=== PATIENT | female | born 1975 | race Caucasian/White ===

== ENCOUNTER 2018-10-27 12:50 | Inpatient (IN) | payer BC ==
[2018-10-27 14:33] LABS: ABS Basophils 0.1 10^3/ul (0-0.2); ABS Eosinophils 0.2 10^3/ul (0-0.6); ABS Lymphocytes 3.1 10^3/ul (1.0-4.8); ABS Monocytes 1.3 10^3/ul (0-0.8); ABS Neutrophils 10.3 10^3/ul (1.5-7.7); Eosinophil % 1.1 %; Hematocrit 40 % (35-47); Hemoglobin 13.4 g/dL (12.0-16.0); Mean Corpuscular HGB Conc 34 g/dL (31-36); Mean Corpuscular Hemoglobin 25 pg (27-31); Mean Corpuscular Volume 75 fL (80-97); Mean Platelet Volume 7.1 fL (7.4-10.4); Nucleated Red Blood Cells % 0.1; Platelet Count 456 10^3/uL (150-450); Red Blood Count 5.33 10^6 /uL (3.70-4.87); Red Cell Distribution Width 15 % (10-15); White Blood Count 14.9 10^3/uL (3.5-10.8)
[2018-10-27 14:56] LABS: HCG Pregnancy < 0.60 mIU/mL
[2018-10-27 15:11] LABS: ALT 29 U/L (7-52); AST 22 U/L (13-39); Albumin 4.5 g/dL (3.2-5.2); Albumin/Globulin Ratio 1.5 (1-3); Alkaline Phosphatase 86 U/L (34-104); Anion Gap 8 mmol/L (2-11); BUN/Creatinine Ratio 10.4 (8-20); Blood Urea Nitrogen 7 mg/dL (6-24); C Reactive Protein 18.88 mg/L (<8.01); CO2 Carbon Dioxide 25 mmol/L (22-32); Calcium 9.1 mg/dL (8.6-10.3); Chloride 105 mmol/L (101-111); EGFR Non-African American 97.5 (>60); Glucose 103 mg/dL (70-100); Potassium 3.6 mmol/L (3.5-5.0); Sodium 138 mmol/L (135-145); Total Protein 7.5 g/dL (6.4-8.9)
[2018-10-27] MEDS ORDERED: NS 0.9% 1000 ML** 1,000 ML IV ONE (17:22)
[2018-10-27] MEDS ORDERED: Ondansetron INJ* 2 MG/ML VIAL IV ONE (17:22)
--- NOTE | 2018-10-27 17:22 | ED ---
Abdominal Pain/Female - HPI Summary HPI Summary: Patient patient with history of Crohn's and recurrent SBO due to stricture complains of upper abdominal pain starting last night with associated nausea and vomiting through the night. Patient states the symptoms are consistent with prior Crohn's flareups and SBO events. Eyes fever, cough, sore throat, CP , SOB, diarrhea, change in urine, vaginal symptoms. Patient currently taking Remicade every other month. Patient took Percocet 5 mg prior to arrival. Medical history is Crohn's. Abdominal surgical history 2. - History of Current Complaint Chief Complaint: EDAbdPain Stated Complaint: HAS CROHNS/POSS BLOCKAGE PER PT Time Seen by Provider: 10/27/18 16:43 Hx Obtained From: Patient Onset/Duration: Gradual Onset, Lasting Hours Timing: Constant Severity Initially: Moderate Severity Currently: Mild Pain Intensity: 2 Pain Scale Used: 0-10 Numeric Location: Discrete At: RUQ, Discrete At: LUQ, Epigastric Radiates: No Character: Cramping Aggravating Factor(s): Food Alleviating Factor(s): Nothing Associated Signs and Symptoms: Positive: Decreased Appetite, Nausea, Vomiting Allergies/Adverse Reactions: Allergies Allergy/AdvReac Type Severity Reaction Status Date / Time Sulfa (Sulfonamide Allergy Nausea Verified 09/21/18 17:34 Antibiotics) Home Medications: Home Medications Cholecalciferol TAB* [Vitamin D TAB*] 4,000 units PO DAILY 10/27/18 [History Confirmed 10/27/18] Multivitamin/Iron/Folic Acid [Centrum Women Tablet] 1 tab PO DAILY 10/27/18 [ History Confirmed 10/27/18] Omeprazole CAP (NF) [Prilosec CAP* 20 MG] 20 mg PO DAILY 10/27/18 [History Confirmed 10/27/18] PMH/Surg Hx/FS Hx/Imm Hx Endocrine/Hematology History: Denies: Hx Diabetes Cardiovascular History: Denies: Hx Hypertension GI History: Reports: Hx Crohn's Disease - controlled by Markel, Other GI Disorders - SBO History: Denies: Hx Renal Disease Sensory History: Denies: Hx Eye Prosthesis Opthamlomology History: Denies: Hx Legally Blind EENT History: Denies: Hx Deafness Neurological History: Denies: Hx Dementia Infectious Disease History: No Infectious Disease History: Denies: Traveled Outside the [place] in Last 30 Days - Family History Known Family History: Positive: Diabetes - Father - DM, Other - Mother - Crohn' s dz - Social History Alcohol Use: Rare Substance Use Type: Reports: None Smoking Status (MU): Former Smoker Type: Cigarettes Length of Time of Smoking/Using Tobacco: 5 yrs Have You Smoked in the Last Year: No Review of Systems Constitutional: Negative Eyes: Negative ENT: Negative Cardiovascular: Negative Respiratory: Negative Positive: Abdominal Pain, Vomiting, Nausea Genitourinary: Negative Musculoskeletal: Negative Skin: Negative Neurological: Negative Psychological: Normal All Other Systems Reviewed And Are Negative: Yes Physical Exam - Summary Physical Exam Summary: Patient tender to palpation in epigastric, right upper quadrant and left upper quadrant. Abdominal exam otherwise unremarkable. Triage Information Reviewed: Yes Vital Signs On Initial Exam: Initial Vitals Temp Pulse Resp BP Pulse Ox 98.0 F 107 18 134/107 99 10/27/18 13:10 10/27/18 13:10 10/27/18 13:10 10/27/18 13:10 10/27/18 13:10 Vital Signs Reviewed: Yes Appearance: Positive: Well-Appearing Skin: Positive: Warm Head/Face: Positive: Normal Head/Face Inspection Eyes: Positive: Normal Neck: Positive: Supple Respiratory/Lung Sounds: Positive: Clear to Auscultation Cardiovascular: Positive: Normal Abdomen Description: Positive: Other: Musculoskeletal: Positive: Normal Neurological: Positive: Normal Psychiatric: Positive: Normal AVPU Assessment: Alert - [place] Coma Scale Best Eye Response: 4 - Spontaneous Best Motor Response: 6 - Obeys Commands Best Verbal Response: 5 - Oriented Coma Scale Total: 15 Diagnostics - Vital Signs Vital Signs Temp Pulse Resp BP Pulse Ox 10/27/18 14:43 97.9 F 107 18 138/92 98 10/27/18 13:10 98.0 F 107 18 134/107 99 - Laboratory Lab Results: Lab Results 10/27/18 10/27/18 10/27/18 Range/Units 14:25 14:25 14:25 WBC 14.9 H (3.5-10.8) 10^3/uL RBC 5.33 H (3.70-4.87) 10^6 /uL Hgb 13.4 (12.0-16.0) g/dL Hct 40 (35-47) % MCV 75 L (80-97) fL MCH 25 L (27-31) pg MCHC 34 (31-36) g/dL RDW 15 (10-15) % Plt Count 456 H (150-450) 10^3/uL MPV 7.1 L (7.4-10.4) fL Neut % (Auto) 69.0 % Lymph % (Auto) 21.0 % [place] % (Auto) 8.4 % Eos % (Auto) 1.1 % Baso % (Auto) 0.5 % Absolute Neuts (auto) 10.3 H (1.5-7.7) 10^3/ul Absolute Lymphs (auto) 3.1 (1.0-4.8) 10^3/ul Absolute Monos (auto) 1.3 H (0-0.8) 10^3/ul Absolute Eos (auto) 0.2 (0-0.6) 10^3/ul Absolute Basos (auto) 0.1 (0-0.2) 10^3/ul Absolute Nucleated RBC 0.0 10^3/ul Nucleated RBC % 0.1 Sodium 138 (135-145) mmol/L Potassium 3.6 (3.5-5.0) mmol/L Chloride 105 (101-111) mmol/L Carbon Dioxide 25 (22-32) mmol/L Anion Gap 8 (2-11) mmol/L BUN 7 (6-24) mg/dL Creatinine 0.67 (0.51-0.95) mg/dL Est GFR ( Amer) 118.0 (>60) Est GFR (Non-Af Amer) 97.5 (>60) BUN/Creatinine Ratio 10.4 (8-20) Glucose 103 H (70-100) mg/dL Lactic Acid 1.0 (0.5-2.0) mmol/L Calcium 9.1 (8.6-10.3) mg/dL Total Bilirubin 0.50 (0.2-1.0) mg/dL AST 22 (13-39) U/L ALT 29 (7-52) U/L Alkaline Phosphatase 86 (34-104) U/L C-Reactive Protein 18.88 H (<8.01) mg/L Total Protein 7.5 (6.4-8.9) g/dL Albumin 4.5 (3.2-5.2) g/dL Globulin 3.0 (2-4) g/dL Albumin/Globulin Ratio 1.5 (1-3) Lipase 21 (11.0-82.0) U/L Beta HCG, Quant < 0.60 mIU/mL Result Diagrams: 10/28/18 05:20 10/28/18 05:20 Lab Statement: Any lab studies that have been ordered have been reviewed, and results considered in the medical decision making process. 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 Patient states the symptoms are consistent with prior Crohn's flareups and SBO events. Eyes fever, cough, sore throat, CP, SOB, diarrhea, change in urine, vaginal symptoms. Patient currently taking Remicade every other month. Patient took Percocet 5 mg prior to arrival. Medical history is Crohn's. Abdominal surgical history 2. Patient mildly tachycardic, vital signs otherwise within normal limits. CBC 14.9. CRP 18.8. CT abdomen and pelvis positive diffuse wall thickening of the distal ileum compatible with the patient's known Crohn's disease. There is mild proximal small bowel obstruction. There is mild free fluid in the abdomen. Ultrasound of the gallbladder positive for multiple small gallstones without focal tenderness or wall thickening. CBD borderline dilated. Moderate fatty liver. Patient admitted to the hospitalist - Diagnoses Provider Diagnoses: Crohns disease, Small bowel obstruction Discharge ED - Sign-Out/Discharge Documenting (check all that apply): Patient Departure - Discharge Plan Condition: Stable Disposition: ADMITTED TO [facility] - Billing Disposition and Condition Condition: STABLE Disposition: Admitted to [facility] - Attestation Statements Provider Attestation: I was available for consult. This patient was seen by the DARY. The patient was not presented to, seen by, or examined by me. Fili Wynn MD
[2018-10-27] MEDS ORDERED: Iohexol 300* (CONTRAST) 10 ML SDV IV ONE (18:04)
[2018-10-27 19:20] LABS: Urine Appearance Clear; Urine Bilirubin Negative (Negative); Urine Blood Negative (Negative); Urine Color Yellow; Urine Glucose Negative (Negative); Urine Ketones Trace (Negative); Urine Nitrite Negative (Negative); Urine Protein Negative (Negative); Urine Specific Gravity 1.018 (1.010-1.030); Urine Urobilinogen Negative (Negative)
[2018-10-27] MEDS ORDERED: methylPREDNISolone SOD 40 MG* 1 ML VIAL IV ONE (19:30)
[2018-10-27] MEDS ORDERED: Pantoprazole TAB * 40 MG TAB PO ONE (20:02)
[2018-10-27] MEDS ORDERED: Acetaminophen TAB* 325 MG PO ONE (20:41)
[2018-10-27] MEDS ORDERED: Morphine INJ* 2 MG/ML 1 ML SYRINGE (TWO MG - NEW SYRINGE VERSION) IV PRN (21:29)
[2018-10-27] MEDS ORDERED: Ondansetron INJ* 2 MG/ML VIAL IV PRN (21:29)
[2018-10-27] MEDS ORDERED: Lactated Ringers 1000 ML Bag* 1,000 ML IV ONE (21:38)
--- NOTE | 2018-10-27 23:09 | HP ---
CC: Dr. Karla Sorensen; Dr. Leiva * ADMISSION HISTORY AND PHYSICAL: DATE OF ADMISSION: 10/27/18 CHIEF COMPLAINT: Abdominal pain, nausea, vomiting. HISTORY OF PRESENT ILLNESS: This is a 42-year-old female with past medical history of Crohn disease of the ileum since age 20 with previous admissions for small bowel obstruction due to scar tissue from Crohn's flares, history of iron- deficiency anemia, gastroesophageal reflux disease, gestational diabetes which has since resolved, intermittent histories of anxiety and depression, came in due to worsening abdominal pain and nausea and vomiting. The patient stated that she was in her usual state of health up until the day before yesterday when she had an episode of diarrhea, which resolved on its own. But the day after, she started developing severe abdominal pain accompanied by nausea and multiple bouts of vomiting especially last night. This morning, she took some old oxycodone with Tylenol, which seemed to cause the pain to subside; however, she again had another episode of vomiting and this time the vomiting contained just green clear liquid, which she knew was from bile and given her history of small bowel obstruction, she finally decided to come to the ER to make sure that she does not have another recurrence of the small bowel obstruction. The patient otherwise denies any fever, but she did state that she felt feverish and did not check her temperature at home. Her bowel movements as mentioned she had an episode of diarrhea the day prior to her symptoms beginning and on the day of the symptoms, she did have formed stools, which was very thin and very little according to her and since yesterday, she has not had a bowel movement today. The abdominal pain was localized to the epigastric area radiating throughout the abdomen, was noted to be 10/10 intensity, felt like her bowels and stomach was cramping. PAST MEDICAL HISTORY: As mentioned, Crohn disease of the ileum with small obstruction, generalized abdominal pain, iron-deficiency anemia, gastroesophageal reflux disease, gestational diabetes, and intermittent bouts of anxiety and depression, currently not on any medications. Regarding her Crohn disease, the patient has been started on Remicade for control and her next infusion is scheduled for 11/16/18, last one was in September. Severe vitamin D deficiency. PAST SURGICAL HISTORY: She has had colonoscopy, endoscopy. Most recent endoscopy being this year. C-sections twice in 2002 and 2008. [place] tooth extraction in 2012. HOME MEDICATIONS: The patient is on: 1. Vitamin D 4000 international units oral daily. 2. Omeprazole 20 mg oral daily. 3. Centrum Women's tablet, 1 tablet oral daily. ALLERGIES: The patient is documented to have allergies to SULFA ANTIBIOTICS. FAMILY HISTORY: Mother age 63, alive, has Crohn disease. Father age 61, has diabetes and [place] macroglobulinemia. Sister and brother both have ADHD, and so does her son. SOCIAL HISTORY: The patient had 7-pack per day history of smoking, but quit over 20 years ago. Denies any alcohol use or any drug use and is full code. REVIEW OF SYSTEMS: A 14-point review of systems did not reveal any new information other than what is stated in the HPI. PHYSICAL EXAMINATION GENERAL: The patient is awake, alert, and oriented x3, did not appear to be in any acute respiratory distress. VITAL SIGNS: In the ER, BP was noted to be 147/107, heart rate 102, respiration rate 18, saturating 97% on room air, temperature was noted to be 98.7. HEAD AND NECK: Atraumatic, normocephalic. Bilateral pupils are reactive. Oral mucosa was moist. Neck supple. No jugular venous distention. LUNGS: Clear to auscultation bilaterally. No wheezing, rhonchi, or rales. HEART: S1, S2. Regular rate and rhythm. ABDOMEN: Soft but diffusely tender with hypoactive bowel sounds. EXTREMITIES: No cyanosis, clubbing, or edema. DIAGNOSTIC STUDIES/LAB DATA: CBC shows mildly elevated white count of 14.9, hemoglobin and hematocrit stable, platelet count was stable. Comprehensive metabolic panel was unremarkable except for C-reactive protein elevated at 18.88. Urinalysis was positive for trace ketones, negative for any nitrite or leuko esterase. CT abdomen and pelvis shows diffuse wall thickening of the distant ileum compatible with patient's known Crohn disease with mild proximal small bowel obstruction. There is mild free fluid in the abdomen. Ultrasound of the gallbladder showed multiple small gallstones without focal tenderness or wall thickening. CBD borderline dilated, moderate fatty liver. IMPRESSION: This is a 42-year-old female with past medical history of Crohn's and small bowel obstruction here with another episode of Crohn's flare, possible component of small bowel obstruction. ASSESSMENT AND PLAN: 1. Abdominal pain, likely multifactorial from Crohn's flare versus small bowel obstruction. Given that the patient's vomiting subsided, we will not place any NG tubes at this point and start the patient on IV fluids and n.p.o. We will also treat her Crohn's flare with Solu-Medrol IV. Dr. Khan had been consulted already by the ER, who suggested the Solu-Medrol and we will consult him regarding further treatment plan. 2. Elevated white count. We will consider starting the patient on antibiotics with Cipro and Flagyl to cover for any Crohn's flare secondary to any infection. 3. History of gastroesophageal reflux disease. We will start the patient on IV Protonix for now. 4. DVT prophylaxis with sequential compression devices. [id number]/[facility] #: [id number] JESIKA
[2018-10-27] MEDS: Pantoprazole IV* 40 MG IV SCH (23:17)
[2018-10-27] MEDS: Ciprofloxacin 400MG IVPREMIX(* 400 MG/200 ML BAG IVPB SCH (23:23)
[2018-10-28] MEDS: metroNIDAZOLE IV 500 MG/100ML* 500 MG/100 ML BAG IVPB SCH ×2 (01:00→07:36)
[2018-10-28 06:34] LABS: ABS Monocytes 0.5 10^3/ul (0-0.8); ABS Neutrophils 7.2 10^3/ul (1.5-7.7); Hematocrit 36 % (35-47); Lymphocyte % 20.4 %; Mean Corpuscular HGB Conc 33 g/dL (31-36); Mean Corpuscular Hemoglobin 25 pg (27-31); Mean Corpuscular Volume 76 fL (80-97); Mean Platelet Volume 7.5 fL (7.4-10.4); Platelet Count 434 10^3/uL (150-450); Red Blood Count 4.78 10^6 /uL (3.70-4.87); Red Cell Distribution Width 15 % (10-15); White Blood Count 9.6 10^3/uL (3.5-10.8)
[2018-10-28 06:49] LABS: BUN/Creatinine Ratio 8.6 (8-20); Calcium 8.8 mg/dL (8.6-10.3); EGFR African American 139.3 (>60); EGFR Non-African American 115.1 (>60); Potassium 3.8 mmol/L (3.5-5.0)
[2018-10-28] MEDS ORDERED: Acetaminophen TAB* 325 MG ONE (07:18)
[2018-10-28] MEDS: Pantoprazole IV* 40 MG IV SCH (07:36)
[2018-10-28] MEDS: Acetaminophen TAB* 325 MG PO PRN ×3 (07:45→19:46)
--- NOTE | 2018-10-28 07:46 | PN ---
Subjective Date of Service: 10/28/18 Interval History: HD 1 on 10/28 42 y/o F with h/o crohn's disease(on remicade), GERD, SBO presented with acute epigastic pain with nausea and vomiting. Found to have ileitis on CT with mild SBO and mild free fluid. US showed cholelithiasis with no Choleystitis. On methylprednisolone VS stable No complaint at present. abdominal pain, nausea and vomiting decreasing. Paased flatus but no BM. NPO Objective Active Medications: Ciprofloxacin/Dextrose (Cipro 400 Mg Ivpremix(*)) 400 mg in 200 mls @ 200 mls/ hr IVPB Q12H [facility]; Protocol Last Admin: 10/27/18 23:23 Dose: 200 mls/hr Metronidazole/Sodium Chloride (Flagyl 500 Mg Ivpb*) 500 mg in 100 mls @ 100 mls /hr IVPB Q8H [facility] Last Admin: 10/28/18 07:36 Dose: 100 mls/hr Methylprednisolone Sodium Succinate (Solu-Medrol 40 Mg) 40 mg IV DAILY [facility] Last Admin: 10/28/18 07:36 Dose: 40 mg Morphine Sulfate (Morphine Inj (Syringe))*) 2 mg IV Q4H PRN PRN Reason: PAIN - SEVERE Ondansetron HCl (Zofran Inj*) 4 mg IV Q4H PRN PRN Reason: NAUSEA/VOMITING Pantoprazole Sodium (Protonix Iv*) 40 mg IV DAILY [facility] Last Admin: 10/28/18 07:36 Dose: 40 mg Vital Signs - 8 hr 10/28/18 10/28/18 10/28/18 03:15 07:07 07:08 Temperature 98.4 F 98.2 F Pulse Rate 89 92 Respiratory 16 16 16 Rate Blood Pressure 137/82 134/68 (mmHg) O2 Sat by Pulse 98 98 Oximetry Oxygen Devices in Use Now: None Exam: patient is lying on a bed with no acute distress HEENT: Normal Lungs: clear with no added sound Heart: S1/S2 heard with no murmur Abdomen: Mild tenderness on epigastric and LUQ. NO rebound, guarding or rigidity. Normal BS heard Extremity: No swelling and clubbing Neuro: Alert, conscious and oriented. Result Diagrams: 10/28/18 05:20 10/28/18 05:20 Additional Lab and Data: Lab Results 10/27/18 10/27/18 10/27/18 Range/Units 14:25 14:25 14:25 WBC 14.9 H (3.5-10.8) 10^3/uL RBC 5.33 H (3.70-4.87) 10^6 /uL Hgb 13.4 (12.0-16.0) g/dL Hct 40 (35-47) % MCV 75 L (80-97) fL MCH 25 L (27-31) pg MCHC 34 (31-36) g/dL RDW 15 (10-15) % Plt Count 456 H (150-450) 10^3/uL MPV 7.1 L (7.4-10.4) fL Neut % (Auto) 69.0 % Lymph % (Auto) 21.0 % [place] % (Auto) 8.4 % Eos % (Auto) 1.1 % Baso % (Auto) 0.5 % Absolute Neuts (auto) 10.3 H (1.5-7.7) 10^3/ul Absolute Lymphs (auto) 3.1 (1.0-4.8) 10^3/ul Absolute Monos (auto) 1.3 H (0-0.8) 10^3/ul Absolute Eos (auto) 0.2 (0-0.6) 10^3/ul Absolute Basos (auto) 0.1 (0-0.2) 10^3/ul Absolute Nucleated RBC 0.0 10^3/ul Nucleated RBC % 0.1 Sodium 138 (135-145) mmol/L Potassium 3.6 (3.5-5.0) mmol/L Chloride 105 (101-111) mmol/L Carbon Dioxide 25 (22-32) mmol/L Anion Gap 8 (2-11) mmol/L BUN 7 (6-24) mg/dL Creatinine 0.67 (0.51-0.95) mg/dL Est GFR ( Amer) 118.0 (>60) Est GFR (Non-Af Amer) 97.5 (>60) BUN/Creatinine Ratio 10.4 (8-20) Glucose 103 H (70-100) mg/dL Lactic Acid 1.0 (0.5-2.0) mmol/L Calcium 9.1 (8.6-10.3) mg/dL Total Bilirubin 0.50 (0.2-1.0) mg/dL AST 22 (13-39) U/L ALT 29 (7-52) U/L Alkaline Phosphatase 86 (34-104) U/L C-Reactive Protein 18.88 H (<8.01) mg/L Total Protein 7.5 (6.4-8.9) g/dL Albumin 4.5 (3.2-5.2) g/dL Globulin 3.0 (2-4) g/dL Albumin/Globulin Ratio 1.5 (1-3) Lipase 21 (11.0-82.0) U/L Beta HCG, Quant < 0.60 mIU/mL Assess/Plan/Problems-Billing Assessment: 42 y/o F with h/o crohn's disease(on remicade), GERD, SBO presented with acute epigastic pain with nausea and vomiting. Found to have distal thickening of ileum on CT with mild SBO and mild free fluid. US showed cholelithiasis with no Choleystitis. On methylprednisolone IV 39 mg BID. - Patient Problems (1) Crohn's disease Current Visit: Yes Status: Acute Code(s): K50.90 - CROHN'S DISEASE, UNSPECIFIED, WITHOUT COMPLICATIONS SNOMED Code(s): 58261114 Comment: History of chrons since age 20 years of age. present symptom suggestive of crohn's ileitis; supported by CT findings. was following with Dr. Tinajero; was getting infliximab; last dose in september ; next dose on november. GI consulted. Plan- NPO IV methylprednisolone 30 mg BID IV pantoprazole IV fluids (2) Small bowel obstruction Current Visit: Yes Status: Acute Code(s): K56.609 - UNSP INTESTNL OBST, UNSP TO PARTIAL VERSUS COMPLETE OBST SNOMED Code(s): 237002872 Comment: past history of SBO; managed conservatively possibly due to crohn's ileitis causing stricture on distal ileum Passing flatus plan- NPO with IV fluids (3) Cholelithiasis Current Visit: Yes Status: Acute Comment: US shows multiple stones; no signs of cholecystitis (4) DVT prophylaxis Current Visit: Yes Status: Acute Code(s): Z29.9 - ENCOUNTER FOR PROPHYLACTIC MEASURES, UNSPECIFIED SNOMED Code(s): 523180549 Comment: On SCD (5) Full code status Current Visit: Yes Status: Acute Code(s): Z78.9 - OTHER SPECIFIED HEALTH STATUS SNOMED Code(s): 515063008 Status and Disposition: Inpatient; GI following Attending: Ban Orozco
[2018-10-28] MEDS ORDERED: Influenza VAC *QUAD* 2019-20* 0.5 ML SYRINGE IM ONE (09:00)
[2018-10-28] MEDS ORDERED: methylPREDNISolone SOD 40 MG* 1 ML VIAL IV SCH (09:00)
[2018-10-28] MEDS: Ciprofloxacin 400MG IVPREMIX(* 400 MG/200 ML BAG IVPB SCH (09:32)
[2018-10-28] MEDS ORDERED: NS 0.9% 1000 ML** 1,000 ML IV SCH (10:45)
--- NOTE | 2018-10-28 11:58 | PN ---
Hospitalist Progress Note Date of Service: 10/28/18 Subjective: Amanda Kaba is a 42 year old female with a past medical of Crohns disease of the ileum with small bowel obstruction, generalized abdominal pain, iron-deficiency anemia, gastroesophageal reflux disease, gestational diabetes, and intermittent bouts of anxiety and depression. She presents today with acute epigastric pain. She was found to have ileitis on CT with mild SBO and mild free fluid. Ultrasound showed cholelithiasis with no cholecystitis. Objective: MCV: 76 L MCH: 25 L BUN: 5 L Glucose: 115 H Physical Exam GENERAL: The patient is awake, alert, and oriented x3 VITAL SIGNS: BP 134/68, heart rate 92, respiration rate 16, saturating 98% on room air, temperature was noted to be 98.2 HEAD AND NECK: Atraumatic, normocephalic. Bilateral pupils are reactive. NECK: supple. No jugular venous distention. LUNGS: Clear to auscultation bilaterally. No wheezing, rhonchi, or rales. HEART: S1, S2, Regular rate and rhythm. ABDOMEN: Soft but diffusely tender on upper and lower right quadrants. EXTREMITIES: No cyanosis, clubbing, or edema. CT abdomen and pelvis: diffuse wall thickening of the distant ileum compatible with patient's known Crohn disease with mild proximal small bowel obstruction. There is mild free fluid in the abdomen. Ultrasound of the gallbladder: Multiple small gallstones without focal tenderness or wall thickening. Assessment and Plan: Abdominal pain: likely multifactorial from Crohn's flare versus small bowel obstruction. We will also treat her Crohn's flare with Solu-Medrol IV (methylprednisolone). Dr. Khan had been consulted already by the ER, who suggested the Solu-Medrol and we will consult him regarding further treatment plan. History of gastroesophageal reflux disease: We will start the patient on IV Protonix (pantoprazole) for now. DVT prophylaxis with sequential compression devices.
[2018-10-28] MEDS: NS 0.9% 1000 ML** 1,000 ML IV SCH ×2 (17:51→23:20)
[2018-10-28] MEDS ORDERED: methylPREDNISolone SOD 40 MG* 1 ML VIAL IV ONE (18:00)
--- NOTE | 2018-10-28 19:07 | CONS ---
CC: Dr. White * GASTROENTEROLOGY CONSULT REPORT: DATE OF CONSULT: 10/28/18 REQUESTING PROVIDER: Dr. White. REASON FOR CONSULT: Concern for small-bowel obstruction related to Crohn disease. HISTORY OF PRESENT ILLNESS: Ms. Kaba is a 42-year-old woman with a history of stricturing ileal Crohn disease, who presents with nausea, vomiting, and abdominal pain with imaging concerning for small-bowel obstruction. Ms. Kaba is currently followed in my clinic for Crohn disease. To review her relevant GI history, she was diagnosed in 1995 with Crohn disease. She developed an SBO in 2015, which was managed conservatively. She has been on prednisone, Asacol, Pentasa, Entecort, and Humira in the past. Colonoscopy in April [address] Mendoza demonstrated a stenotic and ulcerated ileocecal valve with inability to traverse it more than a few centimeters. The appearance was consistent with Crohn disease involving the ileum with a normal- appearing colon. She was started on Humira, which she stopped on her own in late 2015. She has since reestablished care in GI Clinic. Labs at that time were notable for iron deficiency with borderline anemia and elevated CRP. She had an EGD and colonoscopy in May. The EGD demonstrated very mild esophagitis and mild duodenal erythema. Duodenal biopsies demonstrated chronic inactive enteritis. Colonoscopy noted a stenotic terminal ileal opening without overt inflammation. The scope was unable to be advanced into the GI. GI biopsies demonstrated chronic inactive enteritis. Mild inactive chronic colitis was seen in the right colon and rectum. A followup CT enterography in July 2018 demonstrated solitary long segment of inflammatory change in the distal terminal ileum. She was last seen in the clinic in late July. The decision was made at that point to start her on induction of infliximab 5 mg/ kg. She has since completed the induction course and is due for her first maintenance dose on 11/16/18. Overall, she has started to feel like some of her chronic GI symptoms are improving since starting the Infliximab. On Friday, Ms. Kaba ate some moderately crunchy carrots. Several hours later, she began to have significant abdominal discomfort. On Friday evening, she developed multiple episodes of vomiting and abdominal pain. Abdominal pain was localized predominantly in the upper abdomen. Nausea and vomiting persisted until Friday mid morning at which point she called the GI Clinic. She was instructed to present to the ED given concern for bowel obstruction. In the ER , she was noted to have a white count of 14.9. CRP elevated to 18.9. CT abdomen and pelvis was performed, which demonstrated distal wall thickening of the distal ileum compatible with the patient's known Crohn disease. There was mild proximal small- bowel obstruction and mild free fluid in the abdomen. A gallbladder ultrasound was also performed and demonstrated multiple small gallstones without focal tenderness or wall thickening. She was admitted to Medicine. She received IV Solu-Medrol at a dose of 40 mg IV this morning. She has not had any additional nausea or vomiting today. She remains n.p.o. On interview, Ms. Kaba states that she is feeling better, although her abdomen still feels sore and is a bit tender with palpation. She passed some gas this morning. Last bowel movement was before symptom onset on Friday. She notes that her stress level has been very high recently. Her had gone to [place] for a trip related to his job. Her 2 children have recently started school. She is also packing for a move. She thinks that this combination of stressful factors as well as the uncooked carrots may have precipitated her small-bowel obstruction. No other new symptoms she wishes to report today. PAST MEDICAL HISTORY: 1. Ileocolonic Crohn's disease complicated by terinal ileal stricture and small -bowel obstruction. 2. GERD. 3. Iron deficiency. PAST SURGICAL HISTORY: x2 and wisdom tooth extraction. MEDICATIONS: 1. Vitamin D 4000 units daily. 2. Multivitamin with iron and folic acid daily. 3. Omeprazole 20 mg daily. 4. Remicade 5 mcg/kg. ALLERGIES: Allergic to SULFA. FAMILY HISTORY: Mother with Crohn disease, father with diabetes, and sister and brother with ADHD. SOCIAL HISTORY: The patient is a nonsmoker. No alcohol use. with 2 children. Moved from [place] within the last few years. REVIEW OF SYSTEMS: A complete 14-point review of systems is negative, except as mentioned in the HPI. PHYSICAL EXAM: Vital Signs: Afebrile, heart rate 90s to 100, blood pressure 133/79, 97% on room air. General: Pleasant, comfortable but tired-appearing woman. Resting in bed. No acute distress. HEENT: Mucous membranes are moist. Anicteric sclerae. Cardiovascular: Regular rate and rhythm. Pulmonary: Breathing comfortably. Abdomen: Hypoactive bowel sounds. No significant distention. Tender diffusely , although particularly in the epigastric area as well as the right lower quadrant. Extremities: No significant edema. Skin: No jaundice or skin rash on examined areas of skin. DIAGNOSTIC STUDIES/LAB DATA: Labs reviewed. White count on admission 14.9 and now 9.6. Hemoglobin 13.4 on admission and now 12. Platelet count 456 on admission and now 434. CRP 18.88 on admission. Imaging: Abdominal and pelvic CT reviewed as per HPI. This demonstrated distal terminal ileal wall thickening consistent with Crohn's. She has had multiple gallstones seen in her gallbladder without any focal wall thickening. IMPRESSION AND RECOMMENDATIONS: Ms. Kaba is a 42-year-old woman with a history of stricturing ileocolic Crohn disease recently started on infliximab, who presents with small-bowel obstruction. Recently started on Infliximab with completion of induction period. Presents with small bowel obstruction. My suspicion is that she has some active inflammation in the terminal ileum, which has led to the small-bowel obstruction. Clinically, she does seem to be a bit better today without any ongoing nausea and vomiting. Bowel sounds are hypoactive. Reassuring that she has passed some gas today, although she has not had a bowel movement yet. I am hopeful that with ongoing IV steroids, she will continue to have symptomatic improvement and avoid surgery. She will require a transition from IV to oral steroids at the time of discharge as a bridge while we determine if any medication optimization or change needs to be made. We will plan for infliximab level and antibody assay prior to her next infusion on 11/16/18. In the interim, please continue to monitor CBC, BMP, and CRP daily. Would give an additional dose of IV Solu-Medrol 20 mg now for a total of 60 mg IV today. Please order Solu-Medrol IV 30 mg b.i.d. starting tomorrow morning. No indication for antibiotics at this point. Please continue pantoprazole 40 mg IV daily. Please continue IV fluids and consider increasing rate to 100 or 125 mL per hour while she remains n.p.o. Would keep n.p.o. for now until at least tomorrow morning until she can be reassessed. Thank you very much for this consult. GI will continue to follow along. Please contact GI with any acute clinical change or concerns. [id number]/[facility] #: [id number] [facility] HOSPITALSteven
[2018-10-29 06:10] LABS: ABS Lymphocytes 3.5 10^3/ul (1.0-4.8); ABS Monocytes 0.8 10^3/ul (0-0.8); ABS Neutrophils 7.6 10^3/ul (1.5-7.7); Eosinophil % 0.1 %; Hematocrit 35 % (35-47); Hemoglobin 11.6 g/dL (12.0-16.0); Lymphocyte % 29.3 %; Mean Corpuscular HGB Conc 33 g/dL (31-36); Mean Corpuscular Hemoglobin 25 pg (27-31); Mean Corpuscular Volume 76 fL (80-97); Mean Platelet Volume 7.2 fL (7.4-10.4); Platelet Count 445 10^3/uL (150-450); Red Blood Count 4.68 10^6 /uL (3.70-4.87); Red Cell Distribution Width 16 % (10-15); White Blood Count 11.8 10^3/uL (3.5-10.8)
[2018-10-29 06:32] LABS: Albumin 4.1 g/dL (3.2-5.2); Albumin/Globulin Ratio 1.5 (1-3); BUN/Creatinine Ratio 12.1 (8-20); C Reactive Protein 12.27 mg/L (<8.01); Calcium 8.8 mg/dL (8.6-10.3); EGFR African American 139.3 (>60); EGFR Non-African American 115.1 (>60); Globulin 2.7 g/dL (2-4); Magnesium 2.1 mg/dL (1.9-2.7); Potassium 3.8 mmol/L (3.5-5.0); Total Bilirubin 0.3 mg/dL (0.2-1.0); Total Protein 6.8 g/dL (6.4-8.9)
--- NOTE | 2018-10-29 06:59 | PN ---
Subjective Date of Service: 10/29/18 Interval History: HD 2 on 10/29 42 y/o F with h/o crohn's disease(on remicade), GERD, SBO presented with acute epigastic pain with nausea and vomiting. Found to have ileitis on CT with mild SBO and mild free fluid. US showed cholelithiasis with no Choleystitis. On methylprednisolone iv No acute overnight events VS stable No complaint at present Had 2 BM today Objective Active Medications: Acetaminophen (Tylenol Tab*) 650 mg PO Q6H PRN PRN Reason: PAIN - MILD Last Admin: 10/28/18 19:46 Dose: 650 mg Sodium Chloride (Ns 0.9% 1000 Ml) 1,000 mls @ 100 mls/hr IV PER RATE [facility] Last Admin: 10/28/18 23:20 Dose: 100 mls/hr Influenza Virus Vaccine (Fluarix Quad [id number] Syr) 0.5 ml IM .ONCE ONE Stop: 10/29/18 09:01 Methylprednisolone Sodium Succinate (Solu-Medrol 40 Mg) 30 mg IV Q12H [facility] Morphine Sulfate (Morphine Inj (Syringe))*) 2 mg IV Q4H PRN PRN Reason: PAIN - SEVERE Ondansetron HCl (Zofran Inj*) 4 mg IV Q4H PRN PRN Reason: NAUSEA/VOMITING Pantoprazole Sodium (Protonix Iv*) 40 mg IV DAILY [facility] Last Admin: 10/28/18 07:36 Dose: 40 mg Vital Signs - 8 hr 10/28/18 10/29/18 23:15 02:41 Temperature 98.1 F 97.9 F Pulse Rate 105 96 Respiratory 20 16 Rate Blood Pressure 154/92 141/87 (mmHg) O2 Sat by Pulse 98 99 Oximetry Oxygen Devices in Use Now: None Exam: patient is lying on a bed with no acute distress HEENT: Normal Lungs: clear with no added sound Heart: S1/S2 heard with no murmur Abdomen: Soft, nondistended and mild tenderness in epigastric region. Normal BS Extremity: No swelling Neuro: Alert, oriented and conscious Result Diagrams: 10/29/18 05:57 10/29/18 05:57 Additional Lab and Data: Lab Results 10/27/18 10/27/18 10/27/18 Range/Units 14:25 14:25 14:25 WBC 14.9 H (3.5-10.8) 10^3/uL RBC 5.33 H (3.70-4.87) 10^6 /uL Hgb 13.4 (12.0-16.0) g/dL Hct 40 (35-47) % MCV 75 L (80-97) fL MCH 25 L (27-31) pg MCHC 34 (31-36) g/dL RDW 15 (10-15) % Plt Count 456 H (150-450) 10^3/uL MPV 7.1 L (7.4-10.4) fL Neut % (Auto) 69.0 % Lymph % (Auto) 21.0 % Howard % (Auto) 8.4 % Eos % (Auto) 1.1 % Baso % (Auto) 0.5 % Absolute Neuts (auto) 10.3 H (1.5-7.7) 10^3/ul Absolute Lymphs (auto) 3.1 (1.0-4.8) 10^3/ul Absolute Monos (auto) 1.3 H (0-0.8) 10^3/ul Absolute Eos (auto) 0.2 (0-0.6) 10^3/ul Absolute Basos (auto) 0.1 (0-0.2) 10^3/ul Absolute Nucleated RBC 0.0 10^3/ul Nucleated RBC % 0.1 Sodium 138 (135-145) mmol/L Potassium 3.6 (3.5-5.0) mmol/L Chloride 105 (101-111) mmol/L Carbon Dioxide 25 (22-32) mmol/L Anion Gap 8 (2-11) mmol/L BUN 7 (6-24) mg/dL Creatinine 0.67 (0.51-0.95) mg/dL Est GFR ( Amer) 118.0 (>60) Est GFR (Non-Af Amer) 97.5 (>60) BUN/Creatinine Ratio 10.4 (8-20) Glucose 103 H (70-100) mg/dL Lactic Acid 1.0 (0.5-2.0) mmol/L Calcium 9.1 (8.6-10.3) mg/dL Total Bilirubin 0.50 (0.2-1.0) mg/dL AST 22 (13-39) U/L ALT 29 (7-52) U/L Alkaline Phosphatase 86 (34-104) U/L C-Reactive Protein 18.88 H (<8.01) mg/L Total Protein 7.5 (6.4-8.9) g/dL Albumin 4.5 (3.2-5.2) g/dL Globulin 3.0 (2-4) g/dL Albumin/Globulin Ratio 1.5 (1-3) Lipase 21 (11.0-82.0) U/L Beta HCG, Quant < 0.60 mIU/mL Assess/Plan/Problems-Billing Assessment: 42 y/o F with h/o crohn's disease(on remicade), GERD, SBO presented with acute epigastic pain with nausea and vomiting. Found to have distal thickening of ileum on CT with mild SBO and mild free fluid. US showed cholelithiasis with no Choleystitis. On methylprednisolone IV 30 mg BID. - Patient Problems (1) Crohn's disease Current Visit: Yes Status: Acute Code(s): K50.90 - CROHN'S DISEASE, UNSPECIFIED, WITHOUT COMPLICATIONS SNOMED Code(s): 40127246 Comment: Improving today; pain subsiding Had bowel movement History of chrons since age 20 years of age. present symptom suggestive of crohn's ileitis; supported by CT findings. was following with Dr. Tinajero; was getting infliximab; last dose in september ; next dose on november. GI consulted. Plan- advancing diet IV methylprednisolone 30 mg BID IV pantoprazole IV fluids-75 ml/hr (2) Small bowel obstruction Current Visit: Yes Status: Acute Code(s): K56.609 - UNSP INTESTNL OBST, UNSP TO PARTIAL VERSUS COMPLETE OBST SNOMED Code(s): 243678242 Comment: Had 2 BM today past history of SBO; managed conservatively possibly due to crohn's ileitis causing stricture on distal ileum plan- advancing diet (3) Cholelithiasis Current Visit: Yes Status: Acute Comment: US shows multiple stones; no signs of cholecystitis (4) DVT prophylaxis Current Visit: Yes Status: Acute Code(s): Z29.9 - ENCOUNTER FOR PROPHYLACTIC MEASURES, UNSPECIFIED SNOMED Code(s): 592570704 Comment: On SCD (5) Full code status Current Visit: Yes Status: Acute Code(s): Z78.9 - OTHER SPECIFIED HEALTH STATUS SNOMED Code(s): 944149971 Status and Disposition: Inpatient; GI following Attending: Ban Orozco Attestation Documenting Resident: Latasha Thakkar Supervising Physician: Ban Orozco Attestation: This service has been performed in part by a resident under the direction of a teaching physician.I, Ban Orozco, performed the service, or was physically present during the critical, or roe portions of the service, furnished by the resident. I participated in the management of the patient.
[2018-10-29] MEDS: methylPREDNISolone SOD 40 MG* 1 ML VIAL IV SCH ×2 (08:46→21:10)
[2018-10-29] MEDS: Pantoprazole IV* 40 MG IV SCH (08:46)
[2018-10-29] MEDS: NS 0.9% 1000 ML** 1,000 ML IV SCH ×3 (08:54→21:02)
[2018-10-29] MEDS ORDERED: Influenza VAC *QUAD* 2019-20* 0.5 ML SYRINGE IM ONE (09:00)
--- NOTE | 2018-10-29 19:37 | PN ---
Progress Note - Progress Note Date of Service: 10/29/18 Note: GI Follow up note Patient seen and examined. Feeling much better today. Passing flatus and had bm. Pain diminished. Tolerating liquids fine. No fever, chills or rigors. Remainder 14 point ROS negative. VS: 151/97, P-88, R-14, 100% RA, 98.0 tmax Gen: alert and oriented x3 HEENT AT/nc, perrla, eomi, no jvp CVS: RRR s1s2 Resp: cta b/l Abd: soft, nt, nd, bs+ Ext: no c/c/e Skin : no rash Lab WBC: 11.8 Hgb 11.6 Culture negative to date CRP down to 12 Rec: 1.) Crohns exacerbation with partial sbo likely inflammatory: Improving with solumedrol. Is in remicade induction period. CRP coming down nicely and patient responding well to steroids. Change to PO Prednisone on 10/30/18 if continuing to improve. 40mg PO daily. Full liquids today. If doing well will consider cautious low residue. While on 40mg of prednisone discussed she needs to take her omeprazole at home for gastric protection. She has appt on 11/[address] Leiva, she can remain on 40mg daily and will consider titration at that visit. Dominic Khan 10/29/181936
[2018-10-30 05:40] LABS: ABS Monocytes 0.4 10^3/ul (0-0.8); ABS Neutrophils 7.1 10^3/ul (1.5-7.7); Hematocrit 35 % (35-47); Hemoglobin 11.6 g/dL (12.0-16.0); Lymphocyte % 21.4 %; Mean Corpuscular HGB Conc 33 g/dL (31-36); Mean Corpuscular Hemoglobin 25 pg (27-31); Mean Corpuscular Volume 76 fL (80-97); Mean Platelet Volume 7.1 fL (7.4-10.4); Platelet Count 440 10^3/uL (150-450); Red Cell Distribution Width 16 % (10-15); White Blood Count 9.5 10^3/uL (3.5-10.8)
[2018-10-30 05:55] LABS: BUN/Creatinine Ratio 12.3 (8-20); C Reactive Protein 5.15 mg/L (<8.01); Calcium 8.9 mg/dL (8.6-10.3); EGFR African American 122.2 (>60); Potassium 3.8 mmol/L (3.5-5.0)
--- NOTE | 2018-10-30 06:41 | PN ---
Subjective Date of Service: 10/30/18 Interval History: HD 3 on 10/30 42 y/o F with h/o crohn's disease(on remicade), GERD, SBO presented with acute epigastric pain with nausea and vomiting. Found to have ileitis on CT with mild SBO and mild free fluid. US showed cholelithiasis with no Choleystitis. On methylprednisolone iv No acute overnight events VSS CRP dec to 5. No complaint at present. feeling fine Objective Active Medications: Acetaminophen (Tylenol Tab*) 650 mg PO Q6H PRN PRN Reason: PAIN - MILD Last Admin: 10/28/18 19:46 Dose: 650 mg Sodium Chloride (Ns 0.9% 1000 Ml) 1,000 mls @ 75 mls/hr IV PER RATE [facility] Last Admin: 10/29/18 21:02 Dose: 75 mls/hr Methylprednisolone Sodium Succinate (Solu-Medrol 40 Mg) 30 mg IV Q12H [facility] Last Admin: 10/29/18 21:10 Dose: 30 mg Morphine Sulfate (Morphine Inj (Syringe))*) 2 mg IV Q4H PRN PRN Reason: PAIN - SEVERE Ondansetron HCl (Zofran Inj*) 4 mg IV Q4H PRN PRN Reason: NAUSEA/VOMITING Pantoprazole Sodium (Protonix Iv*) 40 mg IV DAILY [facility] Last Admin: 10/29/18 08:46 Dose: 40 mg Vital Signs - 8 hr 10/29/18 10/30/18 23:15 03:15 Temperature 97.3 F 98.2 F Pulse Rate 91 79 Respiratory 18 16 Rate Blood Pressure 152/90 134/81 (mmHg) O2 Sat by Pulse 98 99 Oximetry Oxygen Devices in Use Now: None Exam: patient is lying on a bed with no acute distress HEENT: Normal Lungs: clear with no added sound Heart: S1/S2 heard with no murmur Abdomen: Soft, nondistended and nontender. Normal BS Extremity: No swelling Neuro: Alert, oriented and conscious Result Diagrams: 10/30/18 05:13 10/30/18 05:13 Additional Lab and Data: Lab Results 10/27/18 10/27/18 10/27/18 Range/Units 14:25 14:25 14:25 WBC 14.9 H (3.5-10.8) 10^3/uL RBC 5.33 H (3.70-4.87) 10^6 /uL Hgb 13.4 (12.0-16.0) g/dL Hct 40 (35-47) % MCV 75 L (80-97) fL MCH 25 L (27-31) pg MCHC 34 (31-36) g/dL RDW 15 (10-15) % Plt Count 456 H (150-450) 10^3/uL MPV 7.1 L (7.4-10.4) fL Neut % (Auto) 69.0 % Lymph % (Auto) 21.0 % Branch % (Auto) 8.4 % Eos % (Auto) 1.1 % Baso % (Auto) 0.5 % Absolute Neuts (auto) 10.3 H (1.5-7.7) 10^3/ul Absolute Lymphs (auto) 3.1 (1.0-4.8) 10^3/ul Absolute Monos (auto) 1.3 H (0-0.8) 10^3/ul Absolute Eos (auto) 0.2 (0-0.6) 10^3/ul Absolute Basos (auto) 0.1 (0-0.2) 10^3/ul Absolute Nucleated RBC 0.0 10^3/ul Nucleated RBC % 0.1 Sodium 138 (135-145) mmol/L Potassium 3.6 (3.5-5.0) mmol/L Chloride 105 (101-111) mmol/L Carbon Dioxide 25 (22-32) mmol/L Anion Gap 8 (2-11) mmol/L BUN 7 (6-24) mg/dL Creatinine 0.67 (0.51-0.95) mg/dL Est GFR ( Amer) 118.0 (>60) Est GFR (Non-Af Amer) 97.5 (>60) BUN/Creatinine Ratio 10.4 (8-20) Glucose 103 H (70-100) mg/dL Lactic Acid 1.0 (0.5-2.0) mmol/L Calcium 9.1 (8.6-10.3) mg/dL Total Bilirubin 0.50 (0.2-1.0) mg/dL AST 22 (13-39) U/L ALT 29 (7-52) U/L Alkaline Phosphatase 86 (34-104) U/L C-Reactive Protein 18.88 H (<8.01) mg/L Total Protein 7.5 (6.4-8.9) g/dL Albumin 4.5 (3.2-5.2) g/dL Globulin 3.0 (2-4) g/dL Albumin/Globulin Ratio 1.5 (1-3) Lipase 21 (11.0-82.0) U/L Beta HCG, Quant < 0.60 mIU/mL Assess/Plan/Problems-Billing Assessment: 42 y/o F with h/o crohn's disease(on remicade), GERD, SBO presented with acute epigastic pain with nausea and vomiting. Found to have distal thickening of ileum on CT with mild SBO and mild free fluid. US showed cholelithiasis with no Choleystitis. On methylprednisolone IV 30 mg BID. - Patient Problems (1) Crohn's disease Status: Acute Code(s): K50.90 - CROHN'S DISEASE, UNSPECIFIED, WITHOUT COMPLICATIONS SNOMED Code(s): 47762308 Comment: Improved Had bowel movement History of chrons since age 20 years of age. present symptom suggestive of crohn's ileitis; supported by CT findings. was following with Dr. Tinajero; was getting infliximab; last dose in september ; next dose on november. GI consulted. Plan- advancing diet IV methylprednisolone changed to oral prednisone 40 mg daily omeprazole po (2) Small bowel obstruction Status: Acute Code(s): K56.609 - UNSP INTESTNL OBST, UNSP TO PARTIAL VERSUS COMPLETE OBST SNOMED Code(s): 404687440 Comment: Had 2 BM yesterday; resolved past history of SBO; managed conservatively possibly due to crohn's ileitis causing stricture on distal ileum (3) Cholelithiasis Status: Acute Comment: US shows multiple stones; no signs of cholecystitis will f/u outpatient (4) DVT prophylaxis Status: Acute Code(s): Z29.9 - ENCOUNTER FOR PROPHYLACTIC MEASURES, UNSPECIFIED SNOMED Code(s): 674897473 Comment: On SCD (5) Full code status Status: Acute Code(s): Z78.9 - OTHER SPECIFIED HEALTH STATUS SNOMED Code(s) : 661312647 Status and Disposition: Inpatient; GI following d/c today Attending: Ban Orozco Attestation Documenting Resident: Latasha Meek Supervising Physician: Ban Orozco Attestation: This service has been performed in part by a resident under the direction of a teaching physician.I, Ban Orozco, performed the service, or was physically present during the critical, or roe portions of the service, furnished by the resident. I participated in the management of the patient.
[2018-10-30] MEDS ORDERED: predniSONE TAB* 20 MG PO SCH (09:00)
[2018-10-30] MEDS: Pantoprazole IV* 40 MG IV SCH (09:33)
[2018-10-30] MEDS: NS 0.9% 1000 ML** 1,000 ML IV SCH (10:33)
[2018-10-30 12:44] VITALS: BP 142/96
--- NOTE | 2018-10-30 13:48 | DS ---
CC: Karla Sorensen MD; Dr. Leiva * DISCHARGE SUMMARY: DATE OF ADMISSION: 10/27/18 DATE OF DISCHARGE: 10/30/18 PRIMARY CARE PHYSICIAN: Karla Sorensen MD MAINTENANCE SERVICE SUPERVISOR: Dr. Leiva. PRIMARY DIAGNOSES: 1. Crohn's flare. 2. Partial small bowel obstruction. SECONDARY DIAGNOSES: 1. Iron deficiency anemia. 2. Gastroesophageal reflux disease. CONSULTS: Dr. Leiva of GI. DISCHARGE MEDICATIONS: 1. Prednisone 40 mg daily for 10 more days until GI appointment. 2. Omeprazole 20 mg daily. 3. Vitamin D 4000 units daily. 4. Tylenol 650 mg every 6 hours as needed for pain. 5. Multivitamin. HISTORY OF PRESENT ILLNESS: Ms. Kaba is a 42-year-old woman with a history of Crohn's disease since the age of 20 with previous admissions for small bowel obstruction due to stricture from scar tissue from Crohn's flare, also history of iron deficiency anemia, GERD, gestational diabetes and remote anxiety and depression, who is presenting due to worsening abdominal pain associated with nausea and vomiting. She states that she was in her usual state of health up until the day before presentation when she had an episode of diarrhea, which resolved on its own, but then on day of presentation, she started developing severe abdominal pain accompanied by nausea and multiple bouts of vomiting. On morning of presentation, she took an old oxycodone tablet, which seemed to cause the pain to subside; however, she had persistent vomiting and progressed to contain only green clear liquid which she knew was from bile given her history of small bowel obstructions. This prompted her to come to the ER for evaluation for SBO. The patient denies fever, although may have had subjective fevers at home. She did have episode of diarrhea prior to the day of presentation and on day of presentation, she had formed stools, which was thin. HOSPITAL COURSE: The patient was administered IV steroids with an n.p.o. order placed; however, she was not given an NG tube as she was no longer vomiting. A CT scan was concerning for diffuse wall thickening of the distal ileum compatible with the patient's known Crohn's disease. There is mild proximal small bowel obstruction. There is mild free fluid in the abdomen. She was seen and evaluated by GI by the next morning, who thought her presenting symptoms were likely due to Crohn's exacerbation, which was already improving with IV steroids. They do not think that the patient was presenting with infectious colitis, so antibiotics Cipro and Flagyl from ER were not continued. Her diet was slowly advanced, and she was able to have bowel movements each day while in the hospital, so it was thought her SBO resolved spontaneously and quickly. She was discharged on high dose of prednisone as per GI recs with PPI for gastric protection. She has a followup appointment with Dr. Juana Rodriguez 10 days after discharge. PERTINENT STUDIES AND IMAGING: CBC with hemoglobin 11.6 which is slightly lower than the patient's baseline with MCV 75, leukocytosis resolved by the time of discharge. BMP and LFTs unremarkable. CRP 19 on admission and 5 on discharge. UA clear. Abdomen and pelvis CT with diffuse wall thickening of the distal ileum compatible with the patient's known history of Crohn's disease. There is mild proximal small bowel obstruction. There is mild free fluid in the abdomen. Gallbladder ultrasound with multiple small gallstones without focal tenderness or wall thickening. CBD borderline dilated, moderate fatty liver. 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 She will be continued on 40 mg of prednisone until she sees her gastrointestinal specialist. She was educated to maintain a low residue diet. She was educated on return precautions which include but are not limited to recurrence of nausea and vomiting, worsening of abdominal pain, or signs of gastrointestinal bleeding. She should resume activity as tolerated. DISPOSITION: To home. CONDITION: Good. TIME SPENT: Approximately 60 minutes were spent on discharge of this patient, more than half of which was spent with care coordination at bedside for interview and exam. [id number]/[facility] #: [id number] JESIKA
== END 2018-10-30 13:45 | disposition home or self-care (01) | DRG 387 ==
LOC: ED 12:50 → MED 21:29
PROVIDERS: ADMIT Internal Medicine; ATTEND Internal Medicine
DX: K50.012 Crohn's disease of small intestine with intestinal obstruction (principal); K21.9 Gastro-esophageal reflux disease without esophagitis; F41.9 Anxiety disorder, unspecified; F32.9 Major depressive disorder, single episode, unspecified; D50.9 Iron deficiency anemia, unspecified; K80.20 Calculus of gallbladder without cholecystitis without obstruction; Z88.2 Allergy status to sulfonamides; Z83.3 Family history of diabetes mellitus; Z83.79 Family history of other diseases of the digestive system; Z87.891 Personal history of nicotine dependence; Z81.8 Family history of other mental and behavioral disorders; Z86.72 Personal history of thrombophlebitis
CPT/HCPCS: 36415; 74177; 76705; 80048; 80053; 81003; 83605; 83690; 83735; 84702; 85025; 86140; 87040; 90686; 99284; A9270-GY; J0744; J2405; J2920; J7512; Q9967